=== PATIENT | male | born 1985 | race American Indian/Alaskan Native ===

== ENCOUNTER 2019-07-23 09:53 | Emergency (ER) | payer SELFPAY ==
--- NOTE | 2019-07-23 10:33 | XRay Report ---
CHEST 1 VIEW INDICATION: Chest Pain. COMPARISON: None. FINDINGS: Support devices: None. Heart: Within normal limits. Lungs/Pleura: No acute air space or interstitial disease. Additional findings: None. IMPRESSION: No acute abnormality. Signer Name: Yoshi Dennis MD Signed: 07/23/2019 10:28 AM Workstation Name: [id number]
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
[2019-07-23 12:04] VITALS: BP 132/72
== END 2019-07-23 12:04 | disposition home or self-care (01) ==
LOC: ED 09:53
DX: R07.89 Other chest pain (principal); F11.10 Opioid abuse, uncomplicated; F17.200 Nicotine dependence, unspecified, uncomplicated; F10.10 Alcohol abuse, uncomplicated
CPT/HCPCS: 71045; 93005; 93010